=== PATIENT | male | born 1950 | race Caucasian/White ===

== ENCOUNTER 2025-08-22 15:00 | Emergency (ER) | payer OTHER, SELFPAY ==
[2025-08-22 15:02] VITALS: BP 149/81
--- NOTE | 2025-08-22 15:32 | ED.GENMED ---
History of Present Illness
General
Chief Complaint: Skin Surface Trauma
Source: patient
Time Seen by Provider: 08/22/25 15:22
History of Present Illness
History of Present Illness:
75-year-old male presents to the emergency room with an injury to his left index finger. Patient was using a hedge tremor when he inadvertently injured his finger. No other injuries. Event occurred about an hour prior to arrival. His tetanus is
up-to-date as he had a shot when his granddaughter was born in 2022. Patient does not take any oral anticoagulants. Patient is right-hand dominant.
Past History
Past History
ED Past Medical History: Hypercholesterolemia, NIDDM and Hypothyroidism
ED Past Surgical History: None
Social History
Tobacco: Former smoker
Phy Exam
Physical Exam
Physical Exam:
General: Awake, Alert, Oriented X3. No acute distress.
Vitals: unremarkable
Head: Atraumatic
Eyes: Pupils equal, EOMI
Throat: Airway intact, no exudates
Neck: Trachea midline
Neuro: Nonfocal
Skin: Warm, dry, no rash
Extremities: pulses equal b/l, no edema. Burst type injury noted to the distal phalanx of the left index finger. Nailbed is intact.
Course
Orders/Labs/Results
Orders:
Orders
08/22/25 15:31
Ibuprofen [Motrin] 400 mg PO NOW STA
Finger(s)/Thumb 2 View Lt [CR Finger(s)/thumb Min 2 Vw Lt] Urgent
Comment:
Reason For Exam: fur trimmer injury
Indicate Which Finger:: Index Finger
08/22/25 17:52
Cephalexin Monohydrate [Keflex] 500 mg PO NOW STA
Vital Signs
Initial and Last Documented VS:
Initial Vital Signs
Temp Pulse Resp BP Pulse Ox
97.9 F 103 16 149/81 98
08/22/25 15:02 08/22/25 15:02 08/22/25 15:02 08/22/25 15:02 08/22/25 15:02
Last Documented Vital Signs
Temp Pulse Resp BP Pulse Ox
97.9 F 75 16 149/81 95
08/22/25 15:02 08/22/25 18:09 08/22/25 18:09 08/22/25 15:02 08/22/25 18:09
Procedures
Laceration Closure
Left Finger:
Status of Wound: clean
Description of Wound Edges: ragged, flap-poorly vascularized and macerated
Preparation: cleaned with saline
Anesthesia: Digital-Regional
Revision/Debridement: minor revision and debrided
Wound exploration: explored to base- no FB
Type of Closure: single layer closure
Skin Closure Material: 5-0 nylon
Number of sutures: 13
Additional information:
Complex wound repair of a mangled distal phalanx. Nail left intact and sutured through. Follow-up with hand surgery.
MDM/Problems Addressed
Differential Diagnosis Includes:
Fracture, laceration, neurovascular injury
MDM/Problems Addressed:
Patient presents with a mangled distal phalanx of the left index finger. X-ray shows a tuft fracture. Patient covered with antibiotics. His tetanus up-to-date. Multiple sutures used to align the various flaps of the wound. The nailbed was
involved. I sutured through the nail to approximate the nailbed. Patient will follow-up with hand surgery, Dr. Chong
*Radiology
Radiology exam reviewed: preliminary read by ED provider (Distal phalanx fracture)
*Pulse Oximetry
SaO2: 98
Oxygen Mode of Delivery: Room air
Patient hypoxic: no
*Critical Care Note
Total Time (30-74mins, 75-104mins- exclusive of procedures): Not Applicable
ED Attending Note
-
Portions of this chart may have been created with voice recognition software.� Occasional wrong word or��sound alike� substitutions may have occurred due to the inherent limitations of voice recognition software.
Discharge Plan
Departure
Patient Disposition: Home (Routine Discharge)
Date of Disposition: 08/22/25
Time of Disposition: 17:52
Patient with high blood pressure during this ER visit?: Yes
Condition: Good
Discharge Problem:
Laceration of finger of left hand with damage to nail, Fracture of distal phalanx of index finger
Instructions: Wound Care (DC), Laceration Repair With Stitches (DC), BLOOD PRESSURE
Prescriptions:
New
cephalexin 500 mg capsule
500 mg PO BID Qty: 10 0RF
No Action
multivitamin [Daily Multiple] 1 EACH tablet
1 ea PO DAILY
aspirin [Aspir-Low] 81 MG tablet,delayed release (DR/EC)
81 mg PO DAILY
acyclovir 800 MG tablet
800 mg PO HS
ascorbic acid (vitamin C) [Vitamin C] 500 MG tablet
500 mg PO DAILY
levothyroxine 50 MCG tablet
50 mcg PO DAILY
simvastatin 20 MG tablet
20 mg PO QPM
metformin 1,000 MG tablet
1,000 mg PO BID
omeprazole 20 MG capsule,delayed release(DR/EC)
20 mg PO DAILY
fish oil-dha-epa 1 EACH capsule
1 ea PO DAILY
sitagliptin phosphate [Januvia] 100 MG tablet
100 mg PO .PM
cholecalciferol (vitamin D3) [Vitamin D3] 2,000 UNIT capsule
2,000 unit PO DAILY
empagliflozin [Jardiance] 10 MG tablet
10 mg PO DAILY
C,E,copper,zinc 16-wb4-bxo-carmita 1 CAP capsule
1 cap PO DAILY
azithromycin 250 MG tablet
250 mg PO DAILY Qty: 6 0RF
Rx Instructions:
Take two on day 1 then one tablet on the days following
Referrals:
Nabil Renee MD [Active, Orthopedics]
Cyndy Adair, [Family Provider, Family Practice]
Activity Restrictions/Additional Instructions:
You should call Dr. Renee's office first thing Sunday morning to make an appointment for follow up. Take Tylenol 650mg and ibuprofen 400mg every 6 hours for pain.
Interventions
Interventions:
*Risk Screen - Suicide Last Done: 08/22/25 15:02
*General Assessment Last Done: 08/22/25 15:02
*Neglect/Abuse Screening Last Done: 08/22/25 15:02
*ED- Fall Risk Assessment Last Done: 08/22/25 15:02
*ED COVID-19 Vaccine History Last Done: 08/22/25 15:02
*ED Influenza Vaccine History Last Done: 08/22/25 15:02
*Nursing Disposition Last Done: 08/22/25 18:11
ED-Skin Assessment Last Done: 08/22/25 15:38
Discharge Date and Time
Discharge Date/Time: 08/22/25 18:12
Print Language: [place]
[2025-08-22] MEDS: MOTRIN 400 MG PO (15:34)
[2025-08-22] MEDS: KEFLEX 500 MG PO (18:00)
== END 2025-08-22 18:12 | disposition home or self-care (01) ==
LOC: EMR 15:00
PROVIDERS: EMERGENCY PHYSICIAN Emergency Medicine; FAMILY PHYSICIAN Family Medicine
DX: S62.631A Displaced fracture of distal phalanx of left index finger, initial encounter for closed fracture (principal); S61.311A Laceration without foreign body of left index finger with damage to nail, initial encounter; W29.3XXA Contact with powered garden and outdoor hand tools and machinery, initial encounter; E03.9 Hypothyroidism, unspecified; E11.9 Type 2 diabetes mellitus without complications; E78.00 Pure hypercholesterolemia, unspecified; Z87.891 Personal history of nicotine dependence
CPT/HCPCS: 12041; 99283; 73140